=== PATIENT | female | born 1935 | race Hispanic/Latino ===

== ENCOUNTER 2018-11-11 23:33 | Emergency (ER) | payer MEDICARE ==
[~2018-11-11 23:33] MED LIST: AEC81 PO; NIFE20CA PO
[2018-11-12] MEDS ORDERED: LIDOCAINE HCL 1% 20 ML VIAL ONE (00:43)
== END 2018-11-12 02:37 | disposition home or self-care (01) ==
LOC: EDH 23:33
DX: S01.01XA Laceration without foreign body of scalp, initial encounter (principal); I10 Essential (primary) hypertension; Z90.49 Acquired absence of other specified parts of digestive tract; W18.39XA Other fall on same level, initial encounter; Y93.01 Activity, walking, marching and hiking; Y92.098 Other place in other non-institutional residence as the place of occurrence of the external cause; Y99.8 Other external cause status
CPT/HCPCS: 12002; 70450

== ENCOUNTER 2018-11-27 17:34 | Emergency (ER) | payer MEDICARE | END 2018-11-27 19:25 | disposition home or self-care (01) | LOC: EDH 17:34 | DX: S01.01XD Laceration without foreign body of scalp, subsequent encounter (principal); I10 Essential (primary) hypertension; Z79.899 Other long term (current) drug therapy; Z90.49 Acquired absence of other specified parts of digestive tract; X58.XXXD Exposure to other specified factors, subsequent encounter ==

== ENCOUNTER 2025-05-26 10:50 | Emergency (ER) | payer MEDICARE ==
[~2025-05-26] VITALS: Ht 147.3 cm; Wt 40.8 kg
[~2025-05-26 10:50] MED LIST changes: -AEC81 PO; +AMLO-257 PO; +ASPI-1443 PO; +ATOR10 PO; +CEFD300C3 PO; +CLOP-31 PO; +FAMO20TA8 PO; +METO-408 PO; -NIFE20CA PO; +OLME20TA68 PO
[2025-05-26 10:58] VITALS: BP 164/71; PULSE 59; RESP 16; TEMP 97.8
--- NOTE | 2025-05-26 11:03 | ERN ---
ED Note History of Present Illness Stated Complaint: HEAD INJURY, ON PLAVIX Chief Complaint: Head Injury Time Seen by MD: 10:58 Dictation: PATIENT IS AN 89-YEAR-OLD FEMALE HERE WITH HER DAUGHTER WITH COMPLAINTS OF A SAME LEVEL TRIP FALL 1 HOUR PRIOR TO ARRIVAL. SHE STRUCK HER LEFT LATERAL TEMPORAL AREA WITH A HEMATOMA IN PLACE. NO LOC NO NAUSEA VOMITING NO BAER OR RACCOON SIGN. PATIENT IS ON ELIQUIS, TRAUMA ALERT WAS ACTIVATED. PATIENT IS ANSWERING QUESTIONS APPROPRIATELY, DAUGHTER STATES SHE DOES HAVE A HISTORY OF DEMENTIA BUT SHE IS BASELINE. NO NAUSEA NO VOMITING. NO MIDLINE SPINE PAIN. Allergies: Coded Allergies: propofol (Unverified Allergy, Unknown, UNKNOWN, 04/07/15) Patient and family member state that an ERCP was cancelled due an adverse reaction to Diprivan. Home Meds Active Scripts Famotidine (Famotidine) 20 Mg Tablet, 20 MG PO DAILY for 30 Days, #30 TAB Prov:LIZETT PAYTON 12/20/24 Cefdinir (Cefdinir) 300 Mg Capsule, 1 CAP PO BID for 5 Days, #10 CAP 0 Refills Prov:LIZETT PAYTON 12/20/24 Atorvastatin Calcium (LIPITOR) 20 Mg Tab, 20 MG PO HS, #90 TAB 3 Refills Prov:KAREN JACKSON MD 12/19/24 Clopidogrel Bisulfate (Plavix) 75 Mg Tablet, 75 MG PO DAILY, #30 TAB 0 Refills Prov:KAREN JACKSON MD 12/19/24 Aspirin (Aspirin EC) 81 Mg Tablet.dr, 81 MG PO DAILY, #100 TAB 3 Refills Prov:KAREN JACKSON MD 12/19/24 Olmesartan Medoxomil (Olmesartan Medoxomil) 20 Mg Tablet, 1 TAB PO DAILY for 90 Days, #90 TAB 3 Refills Prov:KAREN JACKSON MD 12/19/24 Amlodipine Besylate (Amlodipine Besylate) 5 Mg Tablet, 5 MG PO DAILY, #90 TAB 3 Refills Prov:KAREN JACKSON MD 12/19/24 Metoprolol Succinate (Metoprolol Succinate) 25 Mg Tab.er.24h, 25 MG PO DAILY, #90 TAB 3 Refills Prov:KAREN JACKSON MD 6/5/25 Past Medical History Past Medical History: Dementia, Hypertension Additional Past Medical Hx: NON COMPLIANT WITH MEDS Surgical History: None Family History: HTN Social History: Negative, Lives with family History: Not Applicable RN Note Reviewed/Agreed w/PFSH: Yes Review of System Dictation CONSTITUTIONAL: NEGATIVE EXCEPT FOR HPI HEAD/FACE: NEGATIVE EXCEPT FOR HPI LEFT LATERAL TEMPORAL HEMATOMA EENT: NEGATIVE EXCEPT FOR HPI RESPIRATORY: NEGATIVE EXCEPT FOR HPI GASTROINTESTINAL/ABDOMINAL: NEGATIVE EXCEPT FOR HPI GENITOURINARY: NEGATIVE EXCEPT FOR HPI MUSCULOSKELETAL: NEGATIVE EXCEPT FOR HPI NO MIDLINE SPINE PAIN NO HIP PAIN INTEGUMENTARY: NEGATIVE EXCEPT FOR HPI NEUROLOGICAL/PSYCH: NEGATIVE EXCEPT FOR HPI HEMATOLOGIC/LYMPHATIC: NEGATIVE EXCEPT FOR HPI ALL SYSTEMS NEGATIVE, EXCEPT NOTED ABOVE. 13 POINT REVIEW OF SYSTEMS ASSESSED AND ALL NEGATIVE EXCEPT FOR ABOVE. Initial Vital Sign VS Vital Signs Date Time Temp Pulse Resp B/P (MAP) Pulse Ox O2 Delivery O2 Flow Rate FiO2 05/26/25 10:58 97.9 59 16 164/71 97 Room Air 0 Physical Exam Dictation VITAL SIGNS REVIEWED GENERAL APPEARANCE: ALERT, ORIENTED X 3, MILD ACUTE DISTRESS, WELL DEVELOPED, NOURISHED. MILD HEAD AND FACE: LEFT LATERAL FRONTAL TEMPORAL HEMATOMA. NO BAER OR RACCOON SIGN EYES: PERRL, PINK CONJUNCTIVAS, EYELID NO TRAUMA, ANTERIOR CHAMBER WITH ARCUS S ENILIS. EARS: PINNAS INTACT AND NO SIGNS OF TRAUMA OR ERYTHEMA EAR CANALS CLEAR AND NO DISCHARGE TM NO ERYTHEMA NO HEMOTYMPANUM NOSE: NO DISCHARGE, NO BLEEDING. OROPHARYNX: MOUTH NORMAL, TONGUE PINK, PHARYNX CLEAR,NO ERYTHEMA, TONSILS NO EXUDATES, NO ABSCESSES NOTED, MUCOUS MEMBRANE MOIST NECK: SUPPLE, NON-TENDER, NO THYROMEGALY, NO MASSES, NO JVD, NO BRUITS BREAST:DEFERRED CHEST:NO TENDERNESS, NO CREPITUS, NO PARADOXICAL MOVEMENT, NO RETRACTIONS LUNGS:CLEAR, WELL-VENTILATED, SYMMETRIC, NO RALES, NO WHEEZING, NO RHONCHI, NO STRIDOR, GOOD BREATH SOUNDS BILATERALLY HEART: REGULAR RATE, REGULAR RHYTHM, NO MURMUR, NO GALLOPS VASCULAR: NO PERIPHERAL EDEMA, ABDOMEN: SOFT, POSITIVE BOWEL SOUNDS, NONDISTENDED, NO GUARDING, NONTENDER, NO REBOUND, NO MASSES NO HEPATOMEGALY, NO SPLENOMEGALY, NO EDUARDO'S SIGN, NO HERNIAS. RECTAL: DEFERRED GENITAL: DEFERRED NEUROLOGICAL: NORMAL SPEECH, MOTOR FUNCTION INTACT, SENSORY FUNCTION INTACT PATIENT IS BASELINE PER HER DAUGHTER AT BEDSIDE. ANSWERING QUESTIONS APPROPRI ATELY REGARDING ANY PAIN MUSCULOSKELETAL: NECK NONTENDER, FULL RANGE OF MOTION, BACK NONTENDER, FULL RANGE OF MOTION, NO MIDLINE SPINE PAIN EXTREMITIES: NONTENDER, FULL RANGE OF MOTION PELVIC PAIN OR HIP PAIN NO SHORTENING OR ROTATION OF LOWER EXTREMITIES SKIN: COLOR PINK, DRY, NO TURGOR, NO RASH, NO LACERATIONS, NO ABRASIONS, NO CONTUSIONS. LYMPHATIC: DEFERRED Results (Laboratory/Radiology) Laboratory/Radiology Laboratory Tests Test 05/26/25 11:02 White Blood Count 6.6 K/uL (4.8-10.8) Red Blood Count 3.94 MIL/uL (4.00-5.50) L Hemoglobin 12.0 g/dL (12.0-16.0) Hematocrit 38.1 % (36-48) Mean Corpuscular Volume 96.7 fL (79-99) Mean Corpuscular Hemoglobin 30.5 pg (27.0-33.0) Mean Corpuscular Hemoglobin Concent 31.5 g/dL (32.0-36.0) L Red Cell Distribution Width 13.1 % (11.0-15.5) Platelet Count 198 K/uL (130-400) Mean Platelet Volume 9.1 fL (7.5-10.5) Immature Granulocyte % (Auto) 0.3 % (0-1) Neutrophils (%) (Auto) 61.2 % (40.0-77.0) Lymphocytes (%) (Auto) 27.9 % (21.0-51.0) Monocytes (%) (Auto) 9.2 % (3.0-13.0) Eosinophils (%) (Auto) 1.1 % (0.0-8.0) Basophils (%) (Auto) 0.3 % (0.0-5.0) Neutrophils # (Auto) 4.1 K/uL (1.8-7.7) Lymphocytes # (Auto) 1.9 K/uL (1.0-4.8) Monocytes # (Auto) 0.6 K/uL (0.1-1.0) Eosinophils # (Auto) 0.07 K/uL (0.00-0.70) Basophils # (Auto) 0.02 K/uL (0.00-0.20) Absolute Immature Granulocyte (auto 0.02 K/uL (0-1) Nucleated Red Blood Cells 0.0 % (0.0-0.19) Sodium Level 138 mmol/L (136-145) Potassium Level 4.4 mmol/L (3.5-5.1) Chloride Level 103 mmol/L (101-111) Carbon Dioxide Level 30 mmol/L (21-32) Blood Urea Nitrogen 13 mg/dL (7-18) Creatinine 0.8 mg/dL (0.5-1.0) Glomerular Filtration Rate Calc 71 mL/min (>90) Random Glucose 111 mg/dL (70-105) H Total Calcium 9.2 mg/dL (8.5-10.1) Troponin I High Sensitivity 12 ng/L (4-50) VICE 1059 REASON: FALL/LEFT LATERAL FRONTAL HEMATOMA. PATIENT ON ELIQUIS ORDERING PHYSICIAN: KAMERON MAYEN CUSTOMER RESOLUTION SPECIALIST PROCEDURE: HEAD WO - CT HEAD/BRAIN W/O CONTRAST EXAM: CT Head Without IV contrast. CLINICAL HISTORY: FALL/LEFT LATERAL FRONTAL HEMATOMA. PATIENT ON ELIQUIS TECHNIQUE: Axial computed tomography images of the head/brain without intravenous contrast. COMPARISON: None provided. FINDINGS: BRAIN: No evidence of acute hemorrhage. No mass lesion. No CT evidence for acute territorial infarct. Encephalomalacia within the bilateral parietal lobes presumed related to prior insults. No midline shift or extra-axial collections. VENTRICLES: No hydrocephalus. ORBITS: The orbits are unremarkable. SINUSES AND MASTOIDS: The paranasal sinuses and mastoid air cells are clear. BONES: No fracture. SOFT TISSUES: Soft tissue edema overlying the left frontal skull. IMPRESSION: No acute intracranial abnormality. /[facility] Reviewed?: Yes EKG Comment: 1135/EKG SINUS RHYTHM/HEART RATE 61/PVCS WITH A LEFT ATRIAL ENLARGEMENT. NONSPECIFIC CHANGES IN ANTERIOR LATERAL LEADS V1 V2 V3 V4 FIVE AND SIX ED Course ED Course Orders Procedure Category Date Status Time Ct Head/Brain W/O CT 05/26/25 Resulted Contrast 10:59 Cbc With Differential LAB 05/26/25 Complete 10:59 Troponin I High LAB 05/26/25 Complete Sensitivity 10:59 12 Lead Ekg Tracing- EKG 05/26/25 Logged Technical 10:59 Basic Metabolic Panel LAB 05/26/25 Complete 10:59 Apply Ice Pack To: CPOE 05/26/25 Transmitted (Er) 10:59 Acetaminophen 500mg PHA 05/26/25 Complete Tab (Tylenol 500mg T 11:00 Current Medications Medications (Trade) Dose Ordered Sig/Reggie Route PRN Reason Start Time Stop Time Status Last Admin Dose Admin Acetaminophen (TYLenol 500MG TAB) 1,000 mg ONCE ONCE PO 05/26/25 11:00 05/26/25 11:01 DC Vital Signs Date Time Temp Pulse Resp B/P (MAP) Pulse Ox O2 Delivery O2 Flow Rate FiO2 05/26/25 10:58 97.9 59 16 164/71 97 Room Air 0 1230/PATIENT IS ALERT AND ORIENTED TIMES 2-3 AND BASELINE PER HER FAMILY AT THE BEDSIDE. THEY IS AWARE THAT THERE WAS A SCALP HEMATOMA ONLY NO CRITERIA FOR ADMISSION. ALL QUESTIONS ANSWERED REGARDING DISCHARGED HOME AND RETURN TO THE EMERGENCY ROOM IF ANY CHANGES FROM CLOSED HEAD INJURY WORK SHEET. THEY AGREED HEART Score Response (Comments) Value EKG: Repolarization changes 1 Risk Factors: 1-2 risk factors (+1) 1 Initial Troponin: Normal limit (0) 0 Total 2 Medical Decision Making MDM I saw and evaluated patient at bedside to assume care due to trauma activation from nurse practitioner at 11:08 a.m. (Dr Louie) MDM: DIFFERENTIAL DIAGNOSIS: CLOSED HEAD INJURY/SUBDURAL HEMATOMA/ELECTROLYTE IMBALANCE/DEHYDRATION/ACS/AMI RATIONALE: TESTS CONSIDERED AND ORDERED SECONDARY TO SHARED DECISION MAKING INCLUDE: RADIOLOGY/LABS PREVIOUS OUTSIDE RECORDS REVIEWED: OLD ER VISITS. RISK OF COMPLICATION AND/OR MORBIDITY OR MORTALITY OF PATIENT MANAGEMENT: NONE MEDICATIONS-PER MEDICATION RECONCILIATION NEED FOR HOSPITALIZATION: PATIENT DOES NOT MEET CRITERIA FOR HOSPITALIZATION. NONE NEED FOR EMERGENCY MAJOR/MINOR SURGERY: NO THERE ARE NO SOCIAL CONCERNS WITH THIS PATIENT. NONE PATIENT HAS STRONG FAMILY SUPPORT AT HOME AND THEY ARE AWARE OF CLOSED HEAD INJURY INFORMATION PRESCRIPTION DRUG MANAGEMENT PRESCRIPTIONS WILL INCLUDE SYMPTOMATIC CARE PATIENT'S PRIOR EXTERNAL MEDICAL RECORDS FROM OTHER ER VISITS WERE REVIEWED BY ME INDICATED. PRIOR TESTING AND RESULTS FROM PREVIOUS VISITS WERE REVIEWED. PRIOR TESTS WERE TAKEN INTO ACCOUNT WITH MEDICAL DECISION MAKING AND RESOURCE UTILIZATION, INDEPENDENT HISTORIAN/HISTORIANS WERE USED TO OBTAIN COMPLETE MEDICAL HISTORY. I INDEPENDENTLY INTERPRETED THE TEST THAT WERE PERFORMED, RESULTS WERE REVIEWED BY ME AND CONSIDERED FINDINGS ON RADIOLOGY IF ORDERED. MEDICAL MANAGEMENT AND EXAMINATION INTERPRETATION DISCUSSIONS WERE HAD BY ME WIT H OTHER QUALIFIED HEALTHCARE PROFESSIONALS INDICATED FOR THE PATIENT'S CARE. DX & DISP Disposition: Discharge Departure Impression: Primary Impression: Scalp hematoma Additional Impressions: Closed head injury, Fall, Mild dehydration, Hyperglycemia Condition: Stable Additional Instructions: FOLLOW-UP WITH PRIMARY CARE PROVIDER IN 1 TO 2 DAYS. TAKE MEDICATIONS DIRECTED HERE IN THE EMERGENCY ROOM. OKAY TO CONTINUE HOME MEDICATIONS UNLESS OTHERWISE DISCUSSED DURING YOUR VISIT IN THE EMERGENCY ROOM TODAY. RETURN TO YOUR NEAREST EMERGENCY ROOM IF SYMPTOMS WORSEN OR IF THERE IS NO IMPROVEMENT. CALL 911 IF YOU NEED IMMEDIATE ASSISTANCE. TAKE TYLENOL [id number] NEEDED AND IF NO CONTRAINDICATIONS ARE PRESENT. INCREASE ORAL HYDRATION. A WOUND CULTURE OR URINE CULTURE WAS ORDERED HERE IN THE EMERGENCY ROOM DEPARTMENT PLEASE FOLLOW-UP WITH PRIMARY CARE PROVIDER AND ADVISE THEM TO GET REPEAT PORTS FROM OUR FACILITY. IF YOU HAD ANY OPHELIA WRAP/SPLINTS THAT WERE APPLIED HERE, PLEASE DO NOT REMOVE THEM UNTIL YOU SEE YOUR PRIMARY CARE OR SPECIALTY. COOL COMPRESSES TO SWELLING ON SCALP THREE TO 4 TIMES A DAY. TYLENOL FOR PAIN. ACTIVITY TOLERATED. RETURN TO THE EMERGENCY ROOM IF IMMEDIATELY IF ANY CHANGES FROM HEAD INJURY WORK SHEET. Referrals: YUSRA GAMA MD (PCP) Time of Disposition: 12:33 I have reviewed the case, and I agree with, Diagnosis and Plan KAMERON MAYEN May 26, 2025 11:03 ELLY LOUIE MD May 26, 2025 11:59
[2025-05-26 11:15] LABS: IMMATURE GRANULOCYTE ABSOLUTE 0.02 K/uL (0-1); NUCLEATED RED BLOOD CELLS 0.0 % (0.0-0.19); PLATELET COUNT (AUTO) 198 K/uL (130-400); RED BLOOD CELL COUNT(AUTO) 3.94 MIL/uL (4.00-5.50); RED CELL DISTRIBUTION WIDTH 13.1 % (11.0-15.5); WHITE BLOOD COUNT (AUTO) 6.6 K/uL (4.8-10.8)
[2025-05-26 11:19] LABS: CREATININE 0.8 mg/dL (0.5-1.0); GLOMERULAR FILTR. RATE CALC 71.0 mL/min (>90); GLUCOSE,RANDOM 111.0 mg/dL (70-105); SODIUM SERUM 138.0 mmol/L (136-145); UREA NITROGEN, BLOOD 13.0 mg/dL (7-18)
--- NOTE | 2025-05-26 11:31 | NUR ---
REFER TO TRAUMA FLOW SHEET
--- NOTE | 2025-05-26 12:25 | HMCIMG ---
EXAM: CT Head Without IV contrast. CLINICAL HISTORY: FALL/LEFT LATERAL FRONTAL HEMATOMA. PATIENT ON ELIQUIS TECHNIQUE: Axial computed tomography images of the head/brain without intravenous contrast. COMPARISON: None provided. FINDINGS: BRAIN: No evidence of acute hemorrhage. No mass lesion. No CT evidence for acute territorial infarct. Encephalomalacia within the bilateral parietal lobes presumed related to prior insults. No midline shift or extra-axial collections. VENTRICLES: No hydrocephalus. ORBITS: The orbits are unremarkable. SINUSES AND MASTOIDS: The paranasal sinuses and mastoid air cells are clear. BONES: No fracture. SOFT TISSUES: Soft tissue edema overlying the left frontal skull. IMPRESSION: No acute intracranial abnormality. /[place]
--- NOTE | 2025-05-26 12:37 | EKG ---
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
== END 2025-05-26 13:20 | disposition home or self-care (01) ==
LOC: EDH 10:50
DX: S00.03XA Contusion of scalp, initial encounter (principal); E86.0 Dehydration; R73.9 Hyperglycemia, unspecified; F03.90 Unspecified dementia, unspecified severity, without behavioral disturbance, psychotic disturbance, mood disturbance, and anxiety; I10 Essential (primary) hypertension; Z79.01 Long term (current) use of anticoagulants; Z79.02 Long term (current) use of antithrombotics/antiplatelets; Z79.82 Long term (current) use of aspirin; Z79.899 Other long term (current) drug therapy; W01.0XXA Fall on same level from slipping, tripping and stumbling without subsequent striking against object, initial encounter; Y93.89 Activity, other specified; Y92.89 Other specified places as the place of occurrence of the external cause; Y99.8 Other external cause status
CPT/HCPCS: 36415; 70450; 80048; 84484; 85025; 93005; 99284